=== PATIENT | female | born 1955 | race Caucasian/White ===

== ENCOUNTER 2022-12-07 02:08 | Outpatient (CLI) | payer BC, SELFPAY ==
[2022-12-10 17:13] LABS: Apolipoprotein B, Serum 125 mg/dL (48-124); Beta VLDL Cholesterol Not Detected mg/dL (<15); Beta VLDL Triglycerides Not Detected mg/dL (<15); Cholesterol, Total, CDC 251 mg/dL; Chylomicron Cholesterol Not Detected; Chylomicron Triglycerides Not Detected; HDL Cholesterol, CDC 55 mg/dL (>=50); LDL Cholesterol 144 mg/dL; LDL Triglycerides 39 mg/dL (<=50); Lp(a) Cholesterol 39 mg/dL (<5); LpX Not detected; Triglycerides, CDC 75 mg/dL; VLDL Cholesterol 13 mg/dL (<30); VLDL Triglycerides 22 mg/dL (<120)
== END 2022-12-07 02:09 | disposition home or self-care (01) ==
DX: E78.00 Pure hypercholesterolemia, unspecified (principal)
CPT/HCPCS: 36415; 80061; 82172; 82664